=== PATIENT | female | born 1935 | race Caucasian/White ===

== ENCOUNTER 2017-01-03 14:37 | Emergency (ER) | payer OTHER ==
[~2017-01-03] VITALS: Ht 154.9 cm; Wt 74.8 kg
[2017-01-03 15:13] VITALS: BP 146/77
--- NOTE | 2017-01-03 15:48 | NUR ---
Patient ambulated to bed 6 with family. RN evaluating patient at bedside.
--- NOTE | 2017-01-03 15:52 | NUR ---
81F BIB FAMILY C/O DYSURIA WITH URINARY BURNING, FREQUENCY, AND RETENTION X 2 DAYS; PT C/O VAGINAL PAIN AND "TIGHTNESS", RADIATES TO LOWER BACK, 8/10 X 2 DAYS; PT NOTED WITH HEALED SCAR TO MID ABDOMEN AND COLOSTOMY BAG TO LEFT ABDOMEN FROM COLON SURGERY; COLOSTOMY BAG /SITE CLEAN, DRY, INTACT AT THIS TIME; PT AA&OX4, PERRLA, BL LUNG SOUNDS CLEAR, RR EVEN/UNLABORED, STATES NO N/V/D AT THIS TIME; PT RESTING IN BED WITH HOB ELEVATED AND IN LOWEST POSITION; POSITIONED FOR COMFORT; ER MD MADE AWARE OF STATUS. WILL CONTINUE TO MONITOR.
[2017-01-03 16:08] LABS: BASOPHILS # (AUTO) 0.2 K/uL (0.00-0.22); BASOPHILS % (AUTO) 3.9 % (0.0-2.0); EOSINOPHILS # (AUTO) 0.1 K/uL (0-0.4); EOSINOPHILS % (AUTO) 1.9 % (0.0-4.0); HEMATOCRIT 41.2 % (36-48); HEMOGLOBIN 13.6 g/dL (12.0-16.0); LYMPHOCYTES % (AUTO) 19.7 % (20.5-51.1); MEAN CORPUSCULAR HEMOGLOBIN 29 pg (27-31); MEAN CORPUSCULAR HGB CONC 33 g/dL (33-37); MEAN CORPUSCULAR VOLUME 89 fL (80-94); MONOCYTES # (AUTO) 0.6 K/uL (0.8-1.0); MONOCYTES % (AUTO) 12.1 % (1.7-9.3); NEUTROPHILS % (AUTO) 62.4 % (42.2-75.2); PLATELET COUNT (AUTO) 213 K/uL (140-450); RED BLOOD CELL COUNT(AUTO) 4.63 MIL/uL (4.20-5.40); RED CELL DISTRIBUTION WIDTH 14.3 % (11.6-13.7); WHITE BLOOD COUNT (AUTO) 4.9 K/uL (4.8-10.8)
--- NOTE | 2017-01-03 16:13 | NUR ---
XRAY AT BEDSIDE.
[2017-01-03] MEDS ORDERED: KETOROLAC 30 MG/ML VIAL IVP ONE (16:15)
[2017-01-03 16:24] LABS: PROTHROMBIN TIME 9.9 secs (10.8-13.4)
[2017-01-03 16:25] LABS: ANION GAP 9.1 (8-16); CARBON DIOXIDE 27.9 mmol/L (21-32); CHLORIDE 104 mmol/L (98-107); CREATININE 0.9 mg/dL (0.6-1.3); GLUCOSE 96 mg/dL (74-106); SODIUM SERUM 137 mmol/L (136-145); UREA NITROGEN, BLOOD 13 mg/dL (7-18)
[2017-01-03 16:32] LABS: ALBUMIN 3.7 g/dL (3.4-5.0); ASPARTATE AMINOTRANSFERASE 19 U/L (15-37); TOTAL BILIRUBIN 0.2 mg/dL (0.0-1.0)
[2017-01-03 17:12] LABS: APPEARANCE,URINE CLEAR (CLEAR); BILIRUBIN,URINE NEGATIVE (NEGATIVE); BLOOD, URINE 2+ (NEGATIVE); COLOR,URINE YELLOW (YELLOW); LEUKOCYTE ESTERASE ,URINE 3+ (NEGATIVE); NITRITE, URINE NEGATIVE (NEGATIVE); UGLUCOSE NEGATIVE (NEGATIVE)
--- NOTE | 2017-01-03 17:20 | NUR ---
Dr. Canales evaluating patient at bedside.
[2017-01-03 17:26] LABS: RBC,URINE 3-10 (FEW) /HPF (0-5); WBC,URINE 60-80 /HPF (0-5)
--- NOTE | 2017-01-03 17:30 | NUR ---
IV removed, catheter intact and site benign. Applied folded 4x4 gauze and tape to stop bleeding. Patient tolerated procedure well.
[2017-01-03 17:37] VITALS: BP 137/70
--- NOTE | 2017-01-03 17:37 | NUR ---
Patient discharged with v/s stable. Written and verbal after care instructions given and explained. Patient alert, oriented and verbalized understanding of instructions. Ambulatory with steady gait. All questions addressed prior to discharge. ID band removed. Patient advised to follow up with PMD. Rx of PYRIDIUM, MOTRIN AND CIPRO given. Patient educated on indication of medication including possible reaction and side effects. Opportunity to ask questions provided and answered.
--- NOTE | 2017-01-06 14:22 | NUR ---
ADDENDUM: LEFT MESSAGE TO PATIENT TO CALL BACK ER FOR NEW PRESCRIPTION. RE: URINE CULTURE RESULTS
--- NOTE | 2017-01-06 15:48 | NUR ---
ADDENDUM: LEFT SECOND MESSAGE TO PATIENT
--- NOTE | 2017-01-06 17:25 | NUR ---
ADDENDUM: MEDS. CALLED IN TO [facility]. MACROBID 100 MG . 1 TAB PO BID X5DAYS
== END 2017-01-03 17:37 | disposition home or self-care (01) ==
LOC: MED 14:37
DX: N39.0 Urinary tract infection, site not specified (principal); Z85.038 Personal history of other malignant neoplasm of large intestine
CPT/HCPCS: 36415; 71010; 80053; 81001; 81025; 82550; 82553; 83605; 83880; 84484; 85025; 85610; 85730; 87040; 87086; 87186; 96374; 99285; J1885; Q0092

== ENCOUNTER 2017-02-28 16:18 | Inpatient (IN) | payer OTHER ==
[~2017-02-28] VITALS: Ht 154.9 cm; Wt 76.2 kg
[2017-02-28 16:42] VITALS: BP 165/91
--- NOTE | 2017-02-28 16:45 | NUR ---
Patient to bed 11.
--- NOTE | 2017-02-28 17:00 | NUR ---
81F BIB DAUGHTER WITH C/O 2/10 EPIGASTRIC AND MID LEFT ABD TO colostomy SITE WITH NAUSEA; PT REPORTS INCREASED SWELLING X 6DAYS, INCREASING WORSENING; REDNESS TO COLOSTOMY TO SITE; PT DENIES N/V HX-COLON CA SKIN IS PINK/WARM/DRY; AAOX4 WITH EVEN AND STEADY GAIT; LUNGS CLEAR BL; HR EVEN AND REGULAR; PT DENIES ANY FEVER, CP, SOB, OR COUGH AT THIS TIME; PATIENT STATES PAIN OF 2/10 AT THIS TIME; VSS; PATIENT POSITIONED FOR COMFORT; HOB ELEVATED; BEDRAILS UP X2; BED DOWN. ER MD MADE AWARE OF PT STATUS.
[2017-02-28] MEDS ORDERED: NACL 0.9% 1,000 ML IV ONE (17:10)
[2017-02-28 17:31] LABS: APPEARANCE,URINE CLEAR (CLEAR); BILIRUBIN,URINE NEGATIVE (NEGATIVE); BLOOD, URINE 2+ (NEGATIVE); COLOR,URINE YELLOW (YELLOW); LEUKOCYTE ESTERASE ,URINE NEGATIVE (NEGATIVE); NITRITE, URINE NEGATIVE (NEGATIVE); PH,URINE 7.5 (5.0-9.0); UGLUCOSE NEGATIVE (NEGATIVE)
[2017-02-28 17:42] LABS: RBC,URINE 11-20 (MOD) /HPF (0-5); WBC,URINE 0-5 (RARE) /HPF (0-5)
[2017-02-28 18:03] LABS: BASOPHILS # (AUTO) 0.1 K/uL (0.00-0.22); BASOPHILS % (AUTO) 1.8 % (0.0-2.0); EOSINOPHILS % (AUTO) 0.5 % (0.0-4.0); HEMOGLOBIN 12.9 g/dL (12.0-16.0); LYMPHOCYTES # (AUTO) 0.9 K/uL (2.5-16.5); LYMPHOCYTES % (AUTO) 11.7 % (20.5-51.1); MEAN CORPUSCULAR HEMOGLOBIN 29 pg (27-31); MEAN CORPUSCULAR HGB CONC 33 g/dL (33-37); MEAN CORPUSCULAR VOLUME 88 fL (80-94); MONOCYTES # (AUTO) 0.8 K/uL (0.8-1.0); MONOCYTES % (AUTO) 10.2 % (1.7-9.3); NEUTROPHILS # (AUTO) 5.9 K/uL (1.8-7.7); NEUTROPHILS % (AUTO) 75.8 % (42.2-75.2); PLATELET COUNT (AUTO) 242 K/uL (140-450); RED BLOOD CELL COUNT(AUTO) 4.42 MIL/uL (4.20-5.40); RED CELL DISTRIBUTION WIDTH 13.8 % (11.6-13.7); WHITE BLOOD COUNT (AUTO) 7.7 K/uL (4.8-10.8)
[2017-02-28 18:09] LABS: ANION GAP 13.7 (8-16); CARBON DIOXIDE 26.2 mmol/L (21-32); CHLORIDE 100 mmol/L (98-107); CREATININE 0.8 mg/dL (0.6-1.3); GLUCOSE 108 mg/dL (74-106); POTASSIUM 3.9 mmol/L (3.5-5.1); SODIUM SERUM 136 mmol/L (136-145); UREA NITROGEN, BLOOD 10 mg/dL (7-18)
[2017-02-28 18:15] LABS: ALBUMIN 3.5 g/dL (3.4-5.0); ASPARTATE AMINOTRANSFERASE 23 U/L (15-37); TOTAL BILIRUBIN 0.5 mg/dL (0.0-1.0)
[2017-02-28 18:20] LABS: PROTHROMBIN TIME 10.4 secs (10.8-13.4)
[2017-02-28] MEDS ORDERED: KETOROLAC 30 MG/ML VIAL IVP ONE (18:25)
[2017-02-28] MEDS ORDERED: CLINDAMYCIN 900 MG in DEXTROSE 5% 100 ML IV ONE (18:25)
[2017-02-28] MEDS ORDERED: ACETAMINOPHEN 325 MG TAB PO PRN (18:35)
[2017-02-28] MEDS ORDERED: DOCUSATE SODIUM 100 MG GELCAP PO PRN (18:35)
[2017-02-28] MEDS ORDERED: ONDANSETRON 4 MG/2 ML VIAL IM/IVP PRN (18:35)
[2017-02-28] MEDS ORDERED: HYDROcodone/APAP 7.5/325 MG 1 TAB PO PRN (18:35)
[2017-02-28] MEDS ORDERED: CLINDAMYCIN 900 MG/6 ML VIAL IV ONE (18:55)
[2017-02-28] MEDS: NACL 0.9% 1,000 ML IV SCH (19:12)
--- NOTE | 2017-02-28 19:21 | NUR ---
REPORT GIVEN TO VINOD VAIL, PT WAITING FOR TRANSFERRING TO FLOOR.
--- NOTE | 2017-02-28 20:00 | NUR ---
Patient will be admitted to care of DR KRISHNA. Admited to TELE. Will go to room 111A. Belongings list completed. BEDSIDE Report to VIC VAIL.IV PATENT AND INFUSING, VIC RN INFORMED TO FINISH BAG.
--- NOTE | 2017-02-28 20:10 | NUR ---
RECEIVED FROM ER PER LAUREL PAUL AND ALERT. ACCOMPANIED BY DAUGHTER. DX. OF PROBABLE CELLULITIS IF SURGICAL COLECTOMY AND ABDOMINAL PAIN. AFEBRILE. POLISH SPEAKING . ORIENTED TO CALL LIGHT USE AND RAPID RESPONSE . IVF SITE TO RAC #20 WITH NS AT 100 ML/H. TELEMETRY MONITORING.
[2017-02-28 20:13] VITALS: BP 116/59
[2017-02-28 20:46] LABS: CHOL/HDL RATIO 4.2 (1-4.5); FREE T4 (FREE THYROXINE) 1.13 ng/dL (0.76-1.46); PHOSPHORUS 3.6 mg/dL (2.5-4.9); THYROID STIMULATING HORMONE 0.65 uIU/mL (0.34-3.74)
[2017-02-28] MEDS: PANTOPRAZOLE 40 MG TABEC PO SCH (22:21)
--- NOTE | 2017-02-28 23:22 | NUR ---
ADMISSION PREPARED WITH HELP OF [employer] SPEAKING LOGISTICS ADMINISTRATOR ID # [id number].
--- NOTE | 2017-02-28 23:24 | NUR ---
DAUGHTER AT BEDSIDE AND IS STAYING OVER TO HELP WITH MOTHER AND WATCH OVER HER. PT. SLEEPING AT THIS TIME. TELEMETRY MONITORING. CALL LIGHT WITH IN REACH.
[2017-03-01] VITALS: BP 100/60
--- NOTE | 2017-03-01 | NUR ---
REMINDED NPO STATUS. PROS AND CONS TO IT EXPLAINED WELL. "OK"
[2017-03-01] MEDS: CLINDAMYCIN 600 MG in DEXTROSE 5% 50 ML IV SCH ×4 (02:25→20:41)
[2017-03-01] MEDS ORDERED: CLINDAMYCIN 600 MG in DEXTROSE 5% 50 ML IV SCH (02:30)
[2017-03-01] MEDS ORDERED: CLINDAMYCIN 600 MG/4 ML VIAL ONE (02:53)
[2017-03-01] MEDS: NACL 0.9% 1,000 ML IV SCH ×3 (03:00→20:40)
[2017-03-01 04:21] VITALS: BP 136/76
--- NOTE | 2017-03-01 04:23 | NUR ---
PT. AMBULATED TO THE RESTROOM WITH STANDBY ASSIST FROM DAUGHTER.GOOD AFFECT. ABLE TO VERBALIZE NEEDS WELL. ENCOURAGED TO GO BACK TO SLEEP.
--- NOTE | 2017-03-01 06:17 | NUR ---
[facility] IVP SCHEDULED FOR 11:00 IN A.M. RT LAST DOSE GIVEN WAS 0250 AND TIMING IS Q8H. WILL ENDORSE TO TH E NEXT RN FOR CONTINUITY OF CARE.
--- NOTE | 2017-03-01 06:39 | NUR ---
PATIENT HAS BEEN SCREENED AND CATEGORIZED MODERATE NUTRITION RISK. PATIENT WILL BE SEEN WITHIN 3-5 DAYS OF ADMISSION. 03/02/17-03/04/17 KAYE ARANGO MS, RDN
--- NOTE | 2017-03-01 06:52 | NUR ---
PT. AWAKE AT THIS TIME AND TALKING TO DAUGHTER. A/O X 4. ROM X 4. NO PAIN COMPLAINTS DONE THIS SHIFT. TELEMETRY MONITORING AND CALL LIGHT AT BEDSIDE AT ALL TIMES.
--- NOTE | 2017-03-01 07:30 | NUR ---
RECEIVED PT REPORT AT BEDSIDE FROM NIGHT NURSE. PT IS AWAKE, ALERT, AND ORIENTED X4. DAUGHTER AND GRANDSON AT BEDSIDE. IVF SITE NOTED TO THE RIGHT AC #20, PATENT, INTACT, INFUSING WELL. ON TELEMETRY MONITORING. BED LOWERED AND CALL LIGHT WITHIN REACH. WILL CONTINUE TO MONITOR.
[2017-03-01 07:50] LABS: BASOPHILS # (AUTO) 0.1 K/uL (0.00-0.22); BASOPHILS % (AUTO) 2.9 % (0.0-2.0); EOSINOPHILS # (AUTO) 0.1 K/uL (0-0.4); HEMATOCRIT 34.4 % (36-48); HEMOGLOBIN 11.8 g/dL (12.0-16.0); LYMPHOCYTES # (AUTO) 0.7 K/uL (2.5-16.5); LYMPHOCYTES % (AUTO) 18.5 % (20.5-51.1); MEAN CORPUSCULAR HEMOGLOBIN 30 pg (27-31); MEAN CORPUSCULAR HGB CONC 34 g/dL (33-37); MEAN CORPUSCULAR VOLUME 88 fL (80-94); MONOCYTES # (AUTO) 0.6 K/uL (0.8-1.0); MONOCYTES % (AUTO) 15.4 % (1.7-9.3); NEUTROPHILS # (AUTO) 2.2 K/uL (1.8-7.7); NEUTROPHILS % (AUTO) 61.2 % (42.2-75.2); PLATELET COUNT (AUTO) 198 K/uL (140-450); RED BLOOD CELL COUNT(AUTO) 3.91 MIL/uL (4.20-5.40); RED CELL DISTRIBUTION WIDTH 13.8 % (11.6-13.7)
[2017-03-01 08:00] VITALS: BP 129/63
[2017-03-01 08:00] LABS: ANION GAP 10.7 (8-16); CARBON DIOXIDE 27.5 mmol/L (21-32); CHLORIDE 106 mmol/L (98-107); CREATININE 0.7 mg/dL (0.6-1.3); GLUCOSE 95 mg/dL (74-106); POTASSIUM 4.2 mmol/L (3.5-5.1); SODIUM SERUM 140 mmol/L (136-145); UREA NITROGEN, BLOOD 9 mg/dL (7-18)
--- NOTE | 2017-03-01 08:50 | NUR ---
MEDICAL RELEASE CONSENT SIGNED AND FAXED TO [facility].
[2017-03-01 09:38] LABS: WHITE BLOOD COUNT (AUTO) 3.7 K/uL (4.8-10.8)
[2017-03-01] MEDS: PANTOPRAZOLE 40 MG TABEC PO SCH (10:17)
[2017-03-01] MEDS: LACTOBACILLUS RHAMNOSUS GG 1 EACH CAP PO SCH (10:17)
--- NOTE | 2017-03-01 13:20 | NUR ---
RECEIVED CALL BACK FROM DR STONE. IS CURRENTLY DOING SURGERY AT [facility]. STATED HE WILL COME TO SEE THE PT THIS AFTERNOON.
[2017-03-01 15:06] VITALS: BP 106/52
--- NOTE | 2017-03-01 17:30 | NUR ---
DR STONE SEEN THE PT. RECOMMEND PT TO FIX THE HERNIA OF THE COLOSTOMY AT [place].
--- NOTE | 2017-03-01 18:30 | NUR ---
PT HAD DINNER, REGULAR DIET. NO S/S OF DISTRESS NOTED. WILL CONTINUE TO MONITOR.
--- NOTE | 2017-03-01 19:30 | NUR ---
RECEIVED FROM AM RN IN BED AWAKE AND ALERT. DAUGHTER IN HERE TO WATCH OVER MOTHER. ABLE T0 VERBALIZE NEEDS WELL. NO SOB. PT. USES CALL LIGHT FOR ANY HELP THEY NEED. PT. AFEBRILE. TELEMETRY MONITORING.
--- NOTE | 2017-03-01 19:35 | NUR ---
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 PT IN STABLE CONDITION.
[2017-03-01 20:01] VITALS: BP 104/58
--- NOTE | 2017-03-01 22:00 | NUR ---
STILL AWAKE AND DAUGHTER TALKING ON THE PHONE. NO COMPLAINTS DONE. TELEMETRY MONITORING. NO SOB. COLOSTOMY BAG INTACT.ENCOURAGED TO CALL FOR ANY HELP THEY MAY NEED OR IF IN PAIN.
[2017-03-02 01:27] VITALS: BP 102/52
--- NOTE | 2017-03-02 01:30 | NUR ---
SLEEPING WELL. NO COMPLAINTS DONE. DAUGHTER AT BEDSIDE WATCHING OVER MOTHER 06/10.
--- NOTE | 2017-03-02 03:04 | NUR ---
ASSISTED TO RESTROOM. ABLE TO VERBALIZE SIMPLE NEEDS . NO COMPLAINTS DONE. DENIES PAIN AT TH IS TIME.
[2017-03-02 04:15] VITALS: BP 127/44
[2017-03-02] MEDS: CLINDAMYCIN 600 MG in DEXTROSE 5% 50 ML IV SCH ×2 (04:21→13:00)
[2017-03-02] MEDS: NACL 0.9% 1,000 ML IV SCH (04:23)
--- NOTE | 2017-03-02 06:09 | NUR ---
PT. SLEEPING WELL THIS SHIFT. NO COMPLAINTS DONE. DAUGHTER AT BEDSIDE.
--- NOTE | 2017-03-02 07:20 | NUR ---
RECEIVED PT REPORT AT BEDSIDE FROM NIGHT NURSE. PT IS AWAKE, ALERT, AND ORIENTED X4. DAUGHTER AT BEDSIDE. IV SITE NOTED TO THE RIGHT AC #20, PATENT, INTACT, INFUSING WELL. ON TELEMETRY MONITORING. BED LOWERED AND CALL LIGHT WITHIN REACH. WILL CONTINUE TO MONITOR.
[2017-03-02 08:00] VITALS: BP 143/74
[2017-03-02] MEDS ORDERED: ACET-1182 PO (09:13)
[2017-03-02] MEDS ORDERED: CLIN300C2 PO (09:13)
[2017-03-02] MEDS: PANTOPRAZOLE 40 MG TABEC PO SCH (09:17)
[2017-03-02] MEDS: LACTOBACILLUS RHAMNOSUS GG 1 EACH CAP PO SCH (09:17)
[2017-03-02] MEDS ORDERED: LACT10CA PO (09:18)
[2017-03-02] MEDS ORDERED: ONDA4ODT2 PO (09:18)
--- NOTE | 2017-03-02 09:45 | NUR ---
WOUND CARE EVALUATION NOTES: REASON FOR EVALUATION: COLOSTOMY HERNIAS COMPLETE SKIN ASSESSMENT DONE ON THIS 81 Y/O FEMALE PATIENT FROM HOME TO [facility], WITH INITIAL DIAGNOSIS OF COLOSTOMY HERNIAS. PATIENT IS AAX4. URDU SPEAKING, DAUGHTER AT BED SIDE. [employer]ER [employer] [place] AT BED SIDE. PT WITH SKIN WARM TO TOUCH WNL, BLE NO HAIR GROWTH, NO EDEMA, DORSAL PEDAL PULSES PRESENT AND NORMAL. CAPILLARY REFILLED <3 SEC. DAUGHTER ABLE TO PROVIDES COLOSTOMY BAG CHANGE. PLAN OF CARE DISCUSSED PRIMARY NURSE AND PT/DAUGHTER. ALL QUESTIONS ANSWERED AND PT/VERBALIZES UNDERSTAND. INTEGUMENTARY: COLOSTOMY ANN-MARIE-STOMA SKIN DRY AND INTACT COLOSTOMY HERNIAS 3 INCHES IN DIAMETER AND 13 CM IN LENGTH, STOMA HEALTHY RED IN COLOR AND MOIST, NOTICE OF MODERATE AMOUNT STOOL OUTPUT. RECOMMENDATIONS: -PT TO FOLLOW UP WITH [facility] APPOINTMENT -HOME HEALTH CARE TO FOLLOW FURTHER CHANGE OF CONDITION ON COLOSTOMY HERNIAS -EMPTY COLOSTOMY BAG WHEN IT IS 2/3 FULL -CHANGE COLOSTOMY BAG Q 5 DAYS AND PRN IF SOILING -ASSESS AND MONITOR SKIN CONDITION DURING POSITION CHANGE, PLEASE PAY ATTENTION TO SACRALCOCCYX AND HEELS -OFFLOAD BILATERAL HEELS BY PLACING PILLOWS UNDER CALVES AT ALL TIMES, UNLESS OTHERWISE CONTRAINDICATED -PRESSURE REDISTRIBUTION SURFACE THERAPY -KEEP SKIN CLEAN AND DRY AT ALL TIMES. RECOMMENDATIONS DISCUSSED WITH PRIMARY RN AND NO NEED FOR FOLLOW UP. PLEASE CONTACT WOUND CARE NURSE FOR ANY CONCERNS AND CHANGES IN WOUND CONDITION
--- NOTE | 2017-03-02 10:30 | NUR ---
PT HAS BEEN SEEN BY WOUND CARE NURSE. COLOSTOMY CITE CLEANED AND BAG CHANGED. COLOSTOMY CARE TEACHING PROVIDED. PT VERBALIZED UNDERSTANDING. PIC OF THE COLOSTOMY TAKEN.
--- NOTE | 2017-03-02 10:57 | NUR ---
CM NOTE PER NATIVIDAD PYLE FOR [facility] ([phone]), PATIENT WAS PREVIOUSLY ON SERVICE / [facility]. WILL CONTINUE SERVICE ONCE PATIENT HAS BE DISCHARGED HOME.
[2017-03-02 12:00] VITALS: BP 115/74
--- NOTE | 2017-03-02 13:10 | NUR ---
PT DISCHARGED PER MD ORDER. CASE MANAGE HAS SPOKEN WITH THE PT FOR HOME HEALTH ARRANGEMENT. IV DC'ED, TIP INTACT, PRESSURE APPLIED. NO S/S OF ACUTE DISTRESS NOTED. DISCHARGE INSTRUCTIONS AND MED TEACHING PROVIDED. PT AND HER DAUGHTER VERBALIZED UNDERSTANDING. DISCHARGE PACKET PROVIDED IN HEBREW. PT LEFT WITH ALL HER BELONGINGS AND IN STABLE CONDITION.
--- NOTE | 2017-03-02 13:44 | NUR ---
RECEIVED PT REPORT AT BEDSIDE FROM NIGHT NURSE. PT IS AWAKE, ALERT, AND ORIENTED X4. DAUGHTER AT BEDSIDE. IV SITE NOTED TO THE RIGHT AC #20, PATENT, INTACT, INFUSING WELL. ON TELEMETRY MONITORING. BED LOWERED AND CALL LIGHT WITHIN REACH. WILL CONTINUE TO MONITOR. Addendum: 03/02/17 at 1345 by Pelon Benítez RN PLEASE DISCARD, WRONG TIME
--- NOTE | 2017-03-02 14:55 | NUR ---
CM NOTE DISCHARGE SUMMARY FAXED TO [facility] (FAX# [phone]) & [place] (FAX# [phone])
[2017-03-03 06:15] LABS: T4 (THYROXINE) 8.7 ug/dL (4.5-12.0)
== END 2017-03-02 13:10 | disposition home health service (06) | DRG 252 ==
LOC: MED 16:18 → MTU 18:41
PROVIDERS: ADMIT Family Medicine; ATTEND Family Medicine
DX: K94.02 Colostomy infection (principal); L03.311 Cellulitis of abdominal wall; R31.9 Hematuria, unspecified; K94.09 Other complications of colostomy; E66.9 Obesity, unspecified; K21.9 Gastro-esophageal reflux disease without esophagitis; N81.10 Cystocele, unspecified; Z68.31 Body mass index [BMI] 31.0-31.9, adult; Z85.038 Personal history of other malignant neoplasm of large intestine; Z90.49 Acquired absence of other specified parts of digestive tract; Z90.710 Acquired absence of both cervix and uterus; Z90.721 Acquired absence of ovaries, unilateral; Z98.891 History of uterine scar from previous surgery; Z92.21 Personal history of antineoplastic chemotherapy; Z92.3 Personal history of irradiation; Y83.3 Surgical operation with formation of external stoma as the cause of abnormal reaction of the patient, or of later complication, without mention of misadventure at the time of the procedure; Y92.89 Other specified places as the place of occurrence of the external cause
CPT/HCPCS: 36415; 71010; 76700; 76705; 80048; 80053; 81001; 82150; 83036; 83605; 83690; 83735; 83880; 84100; 84436; 84439; 84443; 84479; 84484; 85025; 85610; 85730; 87040; 87081; 87086; 93005; 96374; 99285; A4371; J1885; J3490; J7030; J7060; Q0092; Q9967